=== PATIENT | male | born 1970 ===

== ENCOUNTER 2016-10-09 02:43 | Emergency (ER) | payer SELFPAY ==
--- NOTE | 2016-10-09 03:02 | C.PDOC ---
History Of Present Illness Patient presents to the ED with complaints of palpitations and shortness of breath. Patient states he has been drinking Cris and beer with symptoms and anxiety worsening after 1 am. Patient denies any nausea, vomiting, or other complaints at this time. Time Seen by Provider: 10/09/16 03:02 Chief Complaint (Nursing): Palpitations History Per: Patient History/Exam Limitations: no limitations Onset/Duration Of Symptoms: Hrs Current Symptoms Are (Timing): Still Present Associated Symptoms: denies: Dizziness, Blurred Vision, Headache Recent travel outside of the [place]: No Past Medical History Reviewed: Historical Data, Nursing Documentation, Vital Signs Vital Signs: Last Vital Signs Temp 98 F 10/09/16 02:53 Pulse 150 H 10/09/16 02:53 Resp 24 10/09/16 02:53 BP 144/90 10/09/16 02:53 Pulse Ox 96 10/09/16 05:59 - Medical History PMH: Asthma Family History: States: No Known Family Hx - Social History Hx Alcohol Use: Yes Hx Substance Use: No - Immunization History Hx Tetanus Toxoid Vaccination: No Hx Influenza Vaccination: No Hx Pneumococcal Vaccination: No Review Of Systems Constitutional: Negative for: Fever, Chills, Sweats Cardiovascular: Positive for: Palpitations. Negative for: Chest Pain Respiratory: Positive for: Shortness of Breath. Negative for: Cough Gastrointestinal: Negative for: Nausea, Vomiting, Abdominal Pain, Diarrhea Neurological: Negative for: Dizziness Psych: Positive for: Anxiety Physical Exam - Physical Exam Appears: Non-toxic, No Acute Distress, Other (EtOH on breath and patient is anxious ) Skin: Warm, Dry Head: Atraumatic Eye(s): bilateral: Normal Inspection Oral Mucosa: Moist Neck: Supple Chest: Symmetrical, No Deformity Cardiovascular: Other (Tachycardic ) Respiratory: No Rales, No Rhonchi, No Stridor, No Wheezing Gastrointestinal/Abdominal: Soft, No Tenderness, No Distention, No Guarding, No Rebound Extremity: Normal ROM, No Tenderness Neurological/Psych: Oriented x3, Other (paitent speaking in complete sentences ) ED Course And Treatment - Laboratory Results Result Diagrams: 10/09/16 03:34 10/09/16 03:34 ECG: Interpreted By Me, Viewed By Me ECG Rhythm: Sinus Tachycardia (134), Nonspecific Changes O2 Sat by Pulse Oximetry: 96 (room air ) Pulse Ox Interpretation: Normal - Radiology CXR: Interpreted by Me, Viewed By Me CXR Interpretation: No: Infiltrates, Fracture, Pnemothorax Disposition Counseled Patient/Family Regarding: Studies Performed, Diagnosis - Disposition Disposition Time: 03:02 Condition: FAIR - Clinical Impression Clinical Impression: Palpitations - Scribe Statement The provider has reviewed the documentation as recorded by the Scribe Wendie Thrasher All medical record entries made by the Scribe were at my direction and personally dictated by me. I have reviewed the chart and agree that the record accurately reflects my personal performance of the history, physical exam, medical decision making, and the department course for this patient. I have also personally directed, reviewed, and agree with the discharge instructions and disposition. Physician Patient Turnover Patient Signed Over To: Pallavi Cabrales Handoff Comments: pending cta results and disposition
[2016-10-09 03:03] VITALS: TEMP 98
[2016-10-09] MEDS ORDERED: Aspirin 325 mg EC Tablets PO STA (03:03)
[2016-10-09 03:39] LABS: BASO # 0.1 K/uL (0.0-0.2); BASO % 0.5 % (0.0-2.0); HEMATOCRIT 38.5 % (35.0-51.0); LYMPH # 1.9 K/uL (1.0-4.3); LYMPH % 16.2 % (20.0-40.0); MEAN CELL VOLUME 91.7 fL (80.0-94.0); MEAN CORPUSCULAR HEMOGLOBIN 31.5 pg (27.0-31.0); MEAN CORPUSCULAR HGB CONC 34.3 g/dL (33.0-37.0); MONO # 0.5 K/uL (0.0-0.8); MONO % 4.5 % (0.0-10.0); RED CELL DISTRIBUTION WIDTH 13.1 % (11.5-14.5); WHITE BLOOD COUNT 11.6 K/uL (4.8-10.8)
[2016-10-09 03:41] LABS: RBC URINE < 1 /hpf (0-3); URINE BILIRUBIN NEGATIVE (NEGATIVE); URINE BLOOD NEGATIVE (NEGATIVE); URINE COLOR Straw (YELLOW); URINE GLUCOSE (UA) NORMAL (Normal); URINE KETONE NEGATIVE (NEGATIVE); URINE LEUKOCYTE ESTERASE NEG Leu/uL (Negative); URINE PROTEIN NEGATIVE (NEGATIVE); URINE UROBILINOGEN NORMAL mg/dL (0.2-1.0); WBC URINE < 1 /hpf (0-5)
[2016-10-09 03:44] LABS: CHLORIDE 102 mmol/L (98-107)
[2016-10-09 03:45] LABS: POTASSIUM 3.2 mmol/L (3.6-5.2); SODIUM 139 mmol/L (132-148)
[2016-10-09 03:47] LABS: ALB/GLOB RATIO 1.3 (1.0-2.1); ALKALINE PHOSPHATASE 116 U/L (38-126); ALT/SGPT 23 U/L (21-72); AST/SGOT 26 U/L (17-59); BILIRUBIN,TOTAL 0.6 mg/dL (0.2-1.3); BLOOD UREA NITROGEN 9 mg/dL (9-20); CARBON DIOXIDE 22 mmol/L (22-30); GFR AFRICAN-AMERICAN > 60; GLUCOSE,RANDOM 121 mg/dL (75-110); TOTAL PROTEIN 7.8 g/dL (6.3-8.3)
[2016-10-09 03:48] LABS: ALCOHOL SERUM 68 mg/dl (0-10); CALCIUM 8.9 mg/dl (8.6-10.4)
[2016-10-09] MEDS ORDERED: Aspirin 325 mg EC Tablets PO ONE (04:39)
[2016-10-09] MEDS ORDERED: Sodium Chloride 0.9% 1,000 ML IV ONE (05:58)
[2016-10-09] MEDS ORDERED: Iodixanol 320 MG/ML 100 ML BOTTLE IV ONE (06:29)
[2016-10-09 07:22] VITALS: BP 155/95; PULSE 108; RESP 18; O2SAT 100
--- NOTE | 2016-10-09 08:39 | RAD ---
PROCEDURE: CHEST RADIOGRAPH, 1 VIEW HISTORY: chest pain COMPARISON: None available. FINDINGS: LUNGS: Clear. PLEURA: No pneumothorax or pleural fluid seen. CARDIOVASCULAR: Normal. OSSEOUS STRUCTURES: No significant abnormalities. VISUALIZED UPPER ABDOMEN: Normal. OTHER FINDINGS: None. IMPRESSION: No active disease.
--- NOTE | 2016-10-09 09:48 | CT ---
CT chest pulmonary angiogram History: Shortness of breath. Tachycardia. Comparison: None available. Technique: Multiple contiguous axial images were performed through the chest with the use of intravenous contrast according to pulmonary embolism protocol. Subsequently, sagittal and coronal reformatted images were obtained. This CT exam was performed using one or more of the following dose reduction techniques: Automated exposure control, adjustment of the mA and/or kV according to patient size, and/or use of iterative reconstruction technique. Findings: No filling defects to suggest for acute pulmonary embolism. Visualized aorta is preserved. Lung tubbs are grossly preserved. Visualized heart appears grossly preserved. Degenerative changes in the spine. No significant lymphadenopathy. Impression: No evidence for acute pulmonary embolism. These findings were preliminarily reported at 7:18 a.m. on 10/09/[address] Janel Ward from [facility].
== END 2016-10-09 07:51 | disposition home or self-care (01) ==
LOC: C.ER 02:43
DX: R00.2 Palpitations (principal); F10.129 Alcohol abuse with intoxication, unspecified; Y90.3 Blood alcohol level of 60-79 mg/100 ml
CPT/HCPCS: 71010; 71275; 80053; 81001; 84484; 85025; 85610; 85730; 96361; 96374; 99284; G0480; J2060; J7040; Q9967

== ENCOUNTER 2016-10-09 21:40 | Emergency (ER) | payer SELFPAY ==
[2016-10-09] MEDS ORDERED: Albuterol-Ipratrop 3 mg / 0.5 (3 ml) UD IH STA (22:20)
[2016-10-09] MEDS ORDERED: Dexamethasone 4 mg/1 ml ONE (22:29)
[2016-10-09] MEDS ORDERED: Albuterol-Ipratrop 3 mg / 0.5 (3 ml) UD ONE (22:29)
[2016-10-09 22:30] LABS: BASO % 0.2 % (0.0-2.0); HEMATOCRIT 39.9 % (35.0-51.0); LYMPH # 1.1 K/uL (1.0-4.3); LYMPH % 10.3 % (20.0-40.0); MEAN CELL VOLUME 91.3 fL (80.0-94.0); MEAN CORPUSCULAR HEMOGLOBIN 31.5 pg (27.0-31.0); MEAN CORPUSCULAR HGB CONC 34.5 g/dL (33.0-37.0); MEAN PLATELET VOLUME 8.2 fL (7.2-11.7); MONO # 0.5 K/uL (0.0-0.8); MONO % 4.6 % (0.0-10.0); RED CELL DISTRIBUTION WIDTH 13.1 % (11.5-14.5)
--- NOTE | 2016-10-09 22:37 | C.PDOC ---
History Of Present Illness 46 y/o M presents with dyspnea and chest pain. He notes that he feels like this is similar to his previous asthma attacks and states he always gets chest pain with his asthma. He states he is here for the same thing he came to the ER for last night. He notes that he drank a lot of alcohol last night prior to the onset of symptoms. He denies fever, vomiting, diarrhea. On his previous visit last night into earlier this morning, he had a negative CXR, enzymes, and CT chest. Time Seen by Provider: 10/09/16 22:00 Chief Complaint (Nursing): Chest Pain Past Medical History Vital Signs: Last Vital Signs Temp 98.5 F 10/09/16 21:49 Pulse 100 H 10/09/16 21:49 Resp 21 10/09/16 21:49 BP 155/104 H 10/09/16 21:49 Pulse Ox 99 10/09/16 23:21 - Medical History PMH: Asthma Family History: States: No Known Family Hx - Social History Hx Alcohol Use: Yes Hx Substance Use: No - Immunization History Hx Tetanus Toxoid Vaccination: No Hx Influenza Vaccination: No Hx Pneumococcal Vaccination: No Review Of Systems Except As Marked, All Systems Reviewed And Found Negative. Constitutional: Negative for: Fever Cardiovascular: Positive for: Chest Pain Respiratory: Positive for: Shortness of Breath Physical Exam - Physical Exam Additional Physical Exam Comments: Constitutional: No acute distress. Head: Normocephalic. Atraumatic. Eyes: PERRL. ENT: Moist mucous membranes. Neck: Supple. Cardiovascular: HR 90s at bedside. Chest: No tenderness. Respiratory: Clear to auscultation bilaterally. GI: Soft. Nontender. Nondistended. Back: No CVA tenderness. Musculoskeletal: No tenderness or swelling of extremities. Skin: No rash. Neurologic: Alert, no focal deficit. ED Course And Treatment - Laboratory Results Result Diagrams: 10/09/16 22:28 10/09/16 22:28 O2 Sat by Pulse Oximetry: 99 Medical Decision Making Medical Decision Making: EKG NSR 98 bpm, no ST/T wave changes. Will treat with duonebs as patient states this is typical of his asthma. Had negative set of Ilia earlier, will send additional set to check serially. Patient states he feels better after treatment. Labs unremarkable, no significant changes. Discharge home, instructed to f/u with PMD, instructed to return to the ER for worsening pain, dyspnea, fever, or any other problem. Disposition - Disposition Disposition: HOME/ ROUTINE Disposition Time: 23:28 Condition: STABLE Instructions: Asthma (ED) - Clinical Impression Clinical Impression: Chest discomfort - Scribe Statement The provider has reviewed the documentation as recorded by the Scribe Ariel Jones All medical record entries made by the Shahidaibzoey were at my direction and personally dictated by me. I have reviewed the chart and agree that the record accurately reflects my personal performance of the history, physical exam, medical decision making, and the department course for this patient. I have also personally directed, reviewed, and agree with the discharge instructions and disposition.
[2016-10-09 22:41] LABS: CHLORIDE 97 mmol/L (98-107); SODIUM 137 mmol/L (132-148)
[2016-10-09 22:42] LABS: POTASSIUM 3.1 mmol/L (3.6-5.2)
[2016-10-09 22:44] LABS: ALB/GLOB RATIO 1.7 (1.0-2.1); ALKALINE PHOSPHATASE 146 U/L (38-126); ALT/SGPT 27 U/L (21-72); AST/SGOT 28 U/L (17-59); BILIRUBIN,TOTAL 1.1 mg/dL (0.2-1.3); BLOOD UREA NITROGEN 7 mg/dL (9-20); CARBON DIOXIDE 24 mmol/L (22-30); GFR AFRICAN-AMERICAN > 60
[2016-10-09 22:45] LABS: CALCIUM 9.1 mg/dl (8.6-10.4); GLUCOSE,RANDOM 147 mg/dL (75-110)
[2016-10-10 00:21] VITALS: BP 132/87; PULSE 86; RESP 16; TEMP 98.1; O2SAT 98
== END 2016-10-10 00:21 | disposition home or self-care (01) ==
LOC: C.ER 21:40
DX: R07.9 Chest pain, unspecified (principal)
CPT/HCPCS: 80053; 84484; 85025; 96374; 99284; J1100